=== PATIENT | male | born 1955 | race Two or more races ===

== ENCOUNTER 2019-08-02 16:16 | Inpatient (IN) | payer MEDICARE ==
[2019-08-02] VITALS (19 sets, daily range): BP systolic 89–117; BP diastolic 48–81
[~2019-08-02] VITALS: Ht 180.3 cm; Wt 90.9 kg
[2019-08-02] MEDS ORDERED: VANCOMYCIN 1GM/250ML 250 ML IV ONE (17:00)
[2019-08-02] MEDS ORDERED: SODIUM CHLORIDE 0.9% 1,000 ML IV ONE ×2 (17:00)
[2019-08-02] MEDS ORDERED: PIPERACILLIN-TAZOB 3.375GM 100 ML IV ONE (17:00)
[2019-08-02] MEDS ORDERED: IPRATROPIUM BROM 0.5 MG/2.5ML INH SOL NEB ONE (17:15)
[2019-08-02] MEDS ORDERED: ALBUTEROL SULF 2.5 MG/0.5ML(0.5%) NEB SOLN NEB ONE (17:15)
[2019-08-02 17:42] LABS: Albumin 3.1 g/dL (3.4-5.0); Anion Gap 16 (5-15); Blood Urea Nitrogen 45 mg/dL (7-18); Calcium 8.7 mg/dL (8.5-10.1); Carbon Dioxide 19 mmol/L (21-32); Chloride 103 mmol/L (98-107); Glucose 172 mg/dL (74-106); Potassium 3.7 mmol/L (3.5-5.1); Sodium 138 mmol/L (136-145)
[2019-08-02 17:47] LABS: Alanine Aminotransferase 22 U/L (16-61); Alkaline Phosphatase 69 U/L (45-117); Aspartate Aminotransferase 14 U/L (15-37); BUN/Creatinine Ratio 12.1; GFR African American 21 mL/min; GFR Non-African American 18 mL/min; Total Protein 7.5 g/dL (6.4-8.2)
[2019-08-02 17:50] LABS: INR 1.38 (0.9-1.15)
[2019-08-02 17:54] LABS: Basophils # (auto) 0 uL; Basophils % (auto) 0.3 % (0.0-2.0); Eosinophils # (auto) 0 uL; Hematocrit 43.4 % (41.0-53.0); Hemoglobin 15.2 g/dL (13.5-17.5); Lymphocytes # (auto) 0.5 uL; Lymphocytes % (auto) 7.6 % (10.0-50.0); Mean Corpuscular Hemoglobin 32.8 pg (28.0-32.0); Mean Corpuscular Hgb Conc. 35.1 g/dL (32.0-36.0); Mean Corpuscular Volume 93.5 fL (80.0-100.0); Monocytes # (auto) 0.2 uL; Monocytes % (auto) 2.4 % (0.0-12.0); Neutrophils # (auto) 6.3 uL; Neutrophils % (auto) 89.7 % (37.0-80.0); Nucleated Red Blood Cells % 0.1 %; Platelet Count (auto) 123 10^3/uL (140-450); Red Blood Cells 4.64 10^6/uL (4.5-5.90); Red Cell Distribution Width 13.7 % (11.8-14.3); White Blood Cell 7.1 10^3/uL (4.4-10.8)
[2019-08-02] MEDS ORDERED: SODIUM CHLORIDE 0.9% 2,700 ML IV ONE (18:00)
[2019-08-02] MEDS ORDERED: MIDAZOLAM DRIP 50 mg/50mL 50 ML IV ONE (18:07)
[2019-08-02] MEDS ORDERED: ETOMIDATE (2MG/ML) 20ML VIAL IV ONE ×2 (18:07→18:45)
[2019-08-02] MEDS ORDERED: SUCCINYLCHOLINE CHLORIDE 20 MG/ML 10ML VIAL IV ONE ×2 (18:07→18:45)
[2019-08-02] MEDS ORDERED: NOREPINEPHRINE 8 MG/250ML KIT 250 ML IV ONE (18:10)
[2019-08-02] MEDS: NOREPINEPHRINE 8 MG/250ML KIT 250 ML IV SCH (18:15)
[2019-08-02 18:18] LABS: Lactic Acid w/Reflex 4.4 mmol/L (0.4-2.0)
[2019-08-02] MEDS: MIDAZOLAM DRIP 50 mg/50mL 50 ML IV SCH (18:18)
--- NOTE | 2019-08-02 18:19 | NUR ---
Respiratory note: ET TUBE MOVED FROM 22 CM AT THE LIP TO 20 CM AT THE LIP AFTER REVIEW OF CHEST XRAY.
[2019-08-02] MEDS ORDERED: fentaNYL Drip 2500mCg/250mlNS 250 ML IV ONE (18:33)
[2019-08-02] MEDS: fentaNYL Drip 2500mCg/250mlNS 250 ML IV SCH (18:44)
[2019-08-02] MEDS ORDERED: DEXTROSE (50%) 50ML SYRG IV PRN (18:45)
[2019-08-02] MEDS ORDERED: NITROGLYCERIN 0.4 MG SL TAB SL PRN (18:45)
[2019-08-02] MEDS ORDERED: ONDANSETRON HCL 4 MG/2 ML VIAL IV PRN (18:45)
[2019-08-02] MEDS ORDERED: MORPHINE SULF INJ 2 MG/ML SYRINGE 1ML IV PRN (18:45)
[2019-08-02] MEDS ORDERED: Glucerna 1.2 Cal 1Liter BOTTLE GT SCH (18:45)
[2019-08-02] MEDS: SODIUM CHLORIDE 0.9% 1,000 ML IV SCH (19:20)
--- NOTE | 2019-08-02 19:30 | NUR ---
REPORT RECEIVED, ASSUMED CARE.
[2019-08-02] MEDS: AZITHROMYCIN 500MG/ 250ML 250 ML IV SCH (20:37)
[2019-08-02] MEDS ORDERED: ALBUMIN 5% 250 ML IV ONE (21:30)
--- NOTE | 2019-08-02 21:35 | NUR ---
Admit to ICU from ER on GONSALO Yuen Admitted to ICU via gurney on operations mgr, intubated and being bagged by Respiratory Therapist. Patient transfered to bed, connected to mechanical ventilator by therapist, MARYAM at bedside. Patient connected to ICU monitoring, weighed by bedscale, oriented to Ginger Ludwig, primary RN, unit, ventilator and sedation. NOTE: PT TO UNIT ON LEVOPHED GTT 25 MCG/MIN, FENTANYL 150 MCG/HR, AND VERSED 15 MG/HR. INCREASED WORK OF BREATHING OBSERVED. INCREASED FENTANYL GTT. SEE IV SPREADSHEET. SINUS TACH ON APPETIZER PACKER. PT WITH NGT TO L. NARE CLAMPED. PLACEMENT VERIFIED. R IJ TLC IN PLACE ALL PORTS PATENT. L. EJ S/L B&P. JJ TO GRAVITY DRAINING CLOUDY LIGHT EDWARD URINE. BED IN LOWEST LOCKED POSITION. HOB ELEVATED. SIDE RAILS UP X 2. NO INDICATION OF PAIN OBSERVED. PT IN FULL VIEW OF RN STATION. WILL CONTINUE TO MONITOR.
--- NOTE | 2019-08-02 21:36 | NUR ---
REPORT GIVEN TO TARSHA PT TRANSFERED TO ICU 9
--- NOTE | 2019-08-02 21:36 | NUR ---
NOTIFIED HOSPITALIST OF PT CURRENT BP ORDERS OBTAINED.
--- NOTE | 2019-08-02 22:00 | NUR ---
FAMILY VISIT PT DAUGHTER TO BEDSIDE FOR VISIT. PT CONDITION AND PLAN OF CARE DISCUSSED. ALL QUESTIONS AND CONCERNS ADDRESSED.
--- NOTE | 2019-08-02 22:09 | NUR ---
CONSULT FOR CALLED INTO EXCHANGE @1721
[2019-08-02] MEDS: FAMOTIDINE (10MG/ML) 2ML VL IV SCH (23:00)
--- NOTE | 2019-08-02 23:02 | NUR ---
ELEVATED HR/ABG ONI PRICE PAGED. UPDATED REGARDING MOST RECENT ABG RESULTS AND CURRENT HR. ORDERS RECEIVED.
[2019-08-02] MEDS ORDERED: SODIUM CHLORIDE 0.9% 500 ML IV ONE (23:15)
[2019-08-02] MEDS ORDERED: SODIUM BICARBONATE 50ML VIAL 100 ML in D5W/SOD CHL 0.45% 1,000 ML IV SCH (23:15)
[2019-08-02] MEDS ORDERED: SODIUM BICARBONATE 8.4% INJ 50ML SYRINGE ONE (23:17)
[2019-08-03] VITALS (105 sets, daily range): BP systolic 73–143; BP diastolic 46–81
[2019-08-03] MEDS: ALBUTEROL SULF 2.5 MG/0.5ML(0.5%) NEB SOLN NEB SCH ×4 (00:02→18:28)
[2019-08-03] MEDS: IPRATROPIUM BROM 0.5 MG/2.5ML INH SOL NEB SCH ×4 (00:02→18:28)
--- NOTE | 2019-08-03 00:28 | NUR ---
ELEVATED HR STUDIO PRODUCER PAGE PAGED STUDIO PRODUCER PRICE REGARDING ELEVATED HR. AWAIT C/B.
[2019-08-03] MEDS: MIDAZOLAM DRIP 50 mg/50mL 50 ML IV SCH ×5 (00:29→21:06)
[2019-08-03] MEDS: NOREPINEPHRINE 8 MG/250ML KIT 250 ML IV SCH ×2 (00:30→16:08)
--- NOTE | 2019-08-03 00:40 | NUR ---
ONI PRICE CALLED BACK UPDATED REGARDING PT HR AT TIMES SVT 150'S. COARSE CRACKLES AUSCULTATED. ORDER RECEIVED TO OBTAIN CHEST XRAY.
[2019-08-03] MEDS: ACCU-CHEK COMFORT CURVE STRIP VI SCH ×4 (00:50→18:10)
[2019-08-03] MEDS: InsuLIN REG 1unit/0.01ml Soln (100units/ml) SC SCH ×4 (00:51→18:13)
[2019-08-03 04:35] LABS: Basophils # (auto) 0 uL; Basophils % (auto) 0.5 % (0.0-2.0); Eosinophils # (auto) 0 uL; Eosinophils % (auto) 0.3 % (0.0-7.0); Hematocrit 41.9 % (41.0-53.0); Hemoglobin 14.5 g/dL (13.5-17.5); Lymphocytes # (auto) 1.3 uL; Lymphocytes % (auto) 13.3 % (10.0-50.0); Mean Corpuscular Hemoglobin 32.5 pg (28.0-32.0); Mean Corpuscular Hgb Conc. 34.5 g/dL (32.0-36.0); Mean Corpuscular Volume 94.1 fL (80.0-100.0); Monocytes # (auto) 0.2 uL; Monocytes % (auto) 1.8 % (0.0-12.0); Neutrophils # (auto) 8.4 uL; Neutrophils % (auto) 84.1 % (37.0-80.0); Nucleated Red Blood Cells % 0.1 %; Platelet Count (auto) 144 10^3/uL (140-450); Red Blood Cells 4.45 10^6/uL (4.5-5.90); Red Cell Distribution Width 13.9 % (11.8-14.3)
[2019-08-03] MEDS: SODIUM CHLORIDE 0.9% 1,000 ML IV SCH (04:45)
[2019-08-03 04:51] LABS: Calcium 6.9 mg/dL (8.5-10.1); Potassium 3.9 mmol/L (3.5-5.1)
[2019-08-03 04:54] LABS: BUN/Creatinine Ratio 16.5
[2019-08-03] MEDS ORDERED: cefTRIAXone 1GM/50ML D5W 50 ML IV SCH (09:00)
[2019-08-03] MEDS ORDERED: ENOXAPARIN SOD 40 MG/0.4 ML SYRINGE SC SCH (10:00)
--- NOTE | 2019-08-03 10:00 | NUR ---
CVP MONITORING HOOKED UP. SEE VS ASSESSMENT SHEET.
--- NOTE | 2019-08-03 10:01 | NUR ---
FAMILY VISIT PT DAUGHTER TO BEDSIDE FOR VISIT. PT CONDITION AND PLAN OF CARE DISCUSSED. ALL QUESTIONS AND CONCERNS ADDRESSED.
[2019-08-03] MEDS: AZITHROMYCIN 500MG/ 250ML 250 ML IV SCH (10:11)
[2019-08-03] MEDS: FAMOTIDINE (10MG/ML) 2ML VL IV SCH (10:11)
[2019-08-03] MEDS: ENOXAPARIN SOD 30 MG/0.3 ML SYRINGE SC SCH (10:11)
[2019-08-03] MEDS ORDERED: SODIUM CHLORIDE 0.9% 1,000 ML IV SCH (10:15)
[2019-08-03] MEDS: VASOPRESSIN 50 UNITS in D5W 5% 247.5 ML IV SCH (10:15)
[2019-08-03] MEDS ORDERED: VANCOMYCIN PER PHARMACY 0 MG IV SCH (10:15)
[2019-08-03] MEDS ORDERED: FUROSEMIDE 20 MG/2 ML VIAL IV ONE (11:00)
--- NOTE | 2019-08-03 11:10 | NUR ---
Respiratory note: PT RR INCREASED TO [address] VALENTIN. ABG TO FOLLOW.RN AWARE OF CHANGES.
[2019-08-03] MEDS ORDERED: VANCOMYCIN 1GM/250ML 250 ML IV ONE (11:30)
--- NOTE | 2019-08-03 12:14 | NUR ---
Nutrition Assessment/consult Notes please see attached link for complete assessment Est. Needs BW 94 [id number] kcal (23-25 kcal/kgBW), 75-94 gms pro (0.8-1.0 gms/kgBW r/t elev RFT). Will continue to monitor pertinent labs and reassess nutrient need prn Addendum: 08/03/19 at [address] Amended: Links added.
--- NOTE | 2019-08-03 12:20 | NUR ---
Respiratory note: UNABLE TO OBTAIN ABG AT THIS TIME STERILE ART LINE PROCEDURE IN PROGRESS.WILL TRY AGAIN AT A LATER TIME.
--- NOTE | 2019-08-03 12:45 | NUR ---
Criss BOWAMN NP PLACED RIGHT FEMORAL ATRIAL LINE WITHOUT ISSUES. FAP HOOKED UP TO MONITOR. SEE ASSESMENT SHEET.
--- NOTE | 2019-08-03 13:22 | NUR ---
VENOUS DOPPLER STUDY BEING DONE. SEE REPORT.
--- NOTE | 2019-08-03 14:09 | NUR ---
WOUND CARE NOTE: Wound care consult received from nursing for low Montana score. Patient is a 64yo male admitted for septic shock. Patient with a history of HTN, NIDDM, HLD, osteoarthritis and COPD. Patient is currently intubated and sedated. Patient with no signs or symptoms of pain. Last Montana score is 11. Patient with no open wounds noted. Skin is intact. RECOMMENDATIONS: Dietary Consult; Turn q2hrs; Nursing to cleanse buttocks/mariah area with mild soap and water, pat dry, apply ZGUARD BID/PRN soiling, may place sacral foam to prevent friction/shear; wound care team to follow while intubated and Montana <18.
[2019-08-03] MEDS ORDERED: SODIUM BICARBONATE 8.4 % INJ 50ML VIAL IV ONE (14:15)
[2019-08-03] MEDS: fentaNYL Drip 2500mCg/250mlNS 250 ML IV SCH (16:07)
[2019-08-03 16:14] LABS: Urine Bacteria NONE SEEN /hpf (None Seen); Urine Blood TRACE /uL (Negative); Urine Mucus FEW (None Seen); Urine WBC 4 /hpf (0 - 3)
[2019-08-03 16:15] LABS: Alcohol, Urine < 3.0 mg/dL (0-5); Amphetamine Screen, Urine POSITIVE (NEGATIVE); Barbiturate Scree,Urine NEGATIVE (NEGATIVE); Benzodiazephine Screen, Urine POSITIVE (NEGATIVE); Cannabinoid Screen, Urine NEGATIVE (NEGATIVE); Cocaine Screen, Urine NEGATIVE (NEGATIVE)
[2019-08-03 16:22] LABS: Opiate Scree,Urine NEGATIVE (NEGATIVE); Phencyclidine Screen, Urine NEGATIVE (NEGATIVE)
[2019-08-03] MEDS: HYDROCORTISONE SOD SUCC 100 MG/2ML INJ VIAL IV SCH (18:10)
[2019-08-03] MEDS: PIPERACILLIN-TAZOB 2.25GM 50 ML IV SCH (18:13)
--- NOTE | 2019-08-03 20:00 | NUR ---
FAMILY VISIT PT DAUGHTER AND SISTER TO UNIT. UPDATED ON PT CONDITION AND PLAN OF CARE. ALL QUESTIONS AND CONCERNS ADDRESSED. PT DAUGHTER WISHES TO CHANGE PASSWORD AND RESTRICT VISITING TO PASSWORD ONLY. BOILER TESTER UPDATED.
--- NOTE | 2019-08-03 20:00 | NUR ---
OPEN ASSUMED CARE OF MALE PT ORALLY INTUBATED. PT SEDATED ON VERSED GTT 15 MG/HR, AND FENTANYL GTT 200 MCG/HR. COUGH AND GAG POSITIVE. PT GRIMACE DURING TURNING AND ORAL CARE, OTHERWISE NON RESPONSIVE. SR ON SELVAGE MACHINE OPERATOR. LEVOPHED GTT INFUSING AT 20 MCG/MIN, AND VASOPRESSIN GTT 0.03 UNIT/MIN. PULSES WEAK/PALPABLE. R. FEMORAL TAYE IN PLACE WITH GOOD WAVEFORM OBSERVED. R. IJ TLC CATH IN PLACE HOOKED UP TO CVP READINGS. CVP 10. GOOD WAVE FORM OBSERVED. ALL PORTS PATENT. L. EJ 18 G IV S/L. B&P. NGT TO L. NARE CLAMPED. PLACEMENT VERIFIED. JJ TO GRAVITY DRAINING LIGHT EDWARD URINE. NO SKIN BREAKDOWN OBSERVED. NO INDICATION OF PAIN OBSERVED. BED IN LOWEST LOCKED POSITION. HOB ELEVATED 35 DEGREES. PT IN FULL VIEW OF RN STATION. WILL CONTINUE TO MONITOR.
[2019-08-03] MEDS: LINEZOLID 600MG/300ML 300 ML IV SCH (21:55)
--- NOTE | 2019-08-03 22:16 | NUR ---
FIO2 DECREASED TO 55%
[2019-08-04] VITALS (104 sets, daily range): BP systolic 94–133; BP diastolic 60–86
[2019-08-04] MEDS: HYDROCORTISONE SOD SUCC 100 MG/2ML INJ VIAL IV SCH ×4 (00:13→21:34)
[2019-08-04] MEDS: PIPERACILLIN-TAZOB 2.25GM 50 ML IV SCH ×5 (00:15→23:41)
[2019-08-04] MEDS: ACCU-CHEK COMFORT CURVE STRIP VI SCH ×5 (00:20→23:56)
[2019-08-04] MEDS: InsuLIN REG 1unit/0.01ml Soln (100units/ml) SC SCH ×5 (00:25→23:56)
[2019-08-04] MEDS: ALBUTEROL SULF 2.5 MG/0.5ML(0.5%) NEB SOLN NEB SCH ×4 (00:57→18:14)
[2019-08-04] MEDS: IPRATROPIUM BROM 0.5 MG/2.5ML INH SOL NEB SCH ×4 (00:57→18:14)
[2019-08-04 04:27] LABS: Basophils # (auto) 0 uL; Basophils % (auto) 0.2 % (0.0-2.0); Eosinophils # (auto) 0 uL; Hematocrit 38.5 % (41.0-53.0); Hemoglobin 13.3 g/dL (13.5-17.5); Lymphocytes # (auto) 0.5 uL; Lymphocytes % (auto) 3.3 % (10.0-50.0); Mean Corpuscular Hemoglobin 32.4 pg (28.0-32.0); Mean Corpuscular Hgb Conc. 34.5 g/dL (32.0-36.0); Monocytes # (auto) 0.3 uL; Monocytes % (auto) 2.4 % (0.0-12.0); Neutrophils # (auto) 13.5 uL; Neutrophils % (auto) 94.1 % (37.0-80.0); Platelet Count (auto) 118 10^3/uL (140-450); Red Blood Cells 4.09 10^6/uL (4.5-5.90); White Blood Cell 14.3 10^3/uL (4.4-10.8)
[2019-08-04 04:51] LABS: Albumin 2.1 g/dL (3.4-5.0); BUN/Creatinine Ratio 19.3; Calcium 7.3 mg/dL (8.5-10.1); Potassium 4.1 mmol/L (3.5-5.1)
[2019-08-04 04:53] LABS: Bilirubin, Total 0.4 mg/dL (0.2-1.0); Total Protein 6.5 g/dL (6.4-8.2)
[2019-08-04] MEDS: fentaNYL Drip 2500mCg/250mlNS 250 ML IV SCH ×2 (05:02→17:12)
--- NOTE | 2019-08-04 07:00 | NUR ---
Report received from AMY Miles.
--- NOTE | 2019-08-04 08:57 | NUR ---
Dr. Ivory at bedside: Obtain consent for possible bronchoalveolar Lavage, with possible lavage and possible washings.
[2019-08-04] MEDS: VASOPRESSIN 50 UNITS in D5W 5% 247.5 ML IV SCH (09:23)
[2019-08-04] MEDS: NOREPINEPHRINE 8 MG/250ML KIT 250 ML IV SCH (09:24)
[2019-08-04] MEDS: PANTOPRAZOLE 40 MG/10 ML VIAL INJ IV SCH (09:43)
[2019-08-04] MEDS: FAMOTIDINE (10MG/ML) 2ML VL IV SCH (09:43)
[2019-08-04] MEDS: LINEZOLID 600MG/300ML 300 ML IV SCH ×2 (09:44→21:34)
[2019-08-04] MEDS: ENOXAPARIN SOD 30 MG/0.3 ML SYRINGE SC SCH (09:44)
--- NOTE | 2019-08-04 10:40 | NUR ---
Dr. Clarke spoke to family at bedside: Kidney function stable, continue to monitor closely.
[2019-08-04] MEDS: MIDAZOLAM DRIP 50 mg/50mL 50 ML IV SCH ×3 (10:54→20:42)
--- NOTE | 2019-08-04 11:12 | NUR ---
Request for medical records faxed to [facility]. Note: copy placed in chart.
[2019-08-04] MEDS ORDERED: GLIP-110 PO (11:29)
[2019-08-04] MEDS ORDERED: MELO1TAB56 PO (11:29)
[2019-08-04] MEDS ORDERED: PRAV20TA3 GT (11:29)
[2019-08-04] MEDS ORDERED: DICL1GEL35 TD (11:29)
[2019-08-04] MEDS ORDERED: PANT40TA2 PO (11:29)
[2019-08-04] MEDS ORDERED: LISI10TA6 PO (11:29)
[2019-08-04] MEDS ORDERED: GABA300C10 PO (11:29)
--- NOTE | 2019-08-04 14:43 | NUR ---
Dr. De Los Santos at bedside: Titrate off vasopressin before levophed, start Glucerna with goal of 30ml/hr.
--- NOTE | 2019-08-04 15:00 | NUR ---
Tube feeding started at 10ml/hr. Will monitor residuals.
[2019-08-04] MEDS ORDERED: Glucerna 1.2 Cal 1Liter BOTTLE GT SCH (15:45)
--- NOTE | 2019-08-04 16:51 | NUR ---
Increased tube feeding to 20ml/hr, residuals 5cc. Patient tolerating tube feeding. Continue to monitor.
--- NOTE | 2019-08-04 18:58 | NUR ---
Endorsed care to AMY Berry.
--- NOTE | 2019-08-04 20:33 | NUR ---
ETT PLACEMENT READING 7.5 CM ABOVE DELVIS. ETT ADVANCED AND RESECURED AT 23 UPPER LIP FROM 20. CUFF PRESSURE MEASURED AT 30.
[2019-08-05] VITALS (105 sets, daily range): BP systolic 66–133; BP diastolic 52–82
[2019-08-05] MEDS: IPRATROPIUM BROM 0.5 MG/2.5ML INH SOL NEB SCH ×4 (00:15→18:37)
[2019-08-05] MEDS: ALBUTEROL SULF 2.5 MG/0.5ML(0.5%) NEB SOLN NEB SCH ×4 (00:16→18:38)
[2019-08-05] MEDS: MIDAZOLAM DRIP 50 mg/50mL 50 ML IV SCH ×2 (04:04→11:07)
[2019-08-05 04:14] LABS: Basophils # (auto) 0 uL; Basophils % (auto) 0.3 % (0.0-2.0); Eosinophils # (auto) 0 uL; Eosinophils % (auto) 0.1 % (0.0-7.0); Hematocrit 35.1 % (41.0-53.0); Hemoglobin 12.2 g/dL (13.5-17.5); Lymphocytes # (auto) 0.8 uL; Lymphocytes % (auto) 5.7 % (10.0-50.0); Mean Corpuscular Hemoglobin 32.1 pg (28.0-32.0); Mean Corpuscular Hgb Conc. 34.6 g/dL (32.0-36.0); Mean Corpuscular Volume 92.7 fL (80.0-100.0); Monocytes # (auto) 0.7 uL; Monocytes % (auto) 4.8 % (0.0-12.0); Neutrophils # (auto) 12.2 uL; Neutrophils % (auto) 89.1 % (37.0-80.0); Platelet Count (auto) 126 10^3/uL (140-450); Red Blood Cells 3.78 10^6/uL (4.5-5.90); White Blood Cell 13.7 10^3/uL (4.4-10.8)
[2019-08-05 04:31] LABS: BUN/Creatinine Ratio 28.6; Calcium 8.1 mg/dL (8.5-10.1); Potassium 3.4 mmol/L (3.5-5.1)
--- NOTE | 2019-08-05 05:00 | NUR ---
A Line Dressing Changes A line dressing change done with a sterile technique. Cleansed with chloraprep scrub/betadine, applied bio-patch. Occlusive dressing applied.
--- NOTE | 2019-08-05 05:30 | NUR ---
Patient bathe/linen change Patient given complete bath. Skin integrity assessed for any changes. Linens changed. Patient repositioned for comfort.
[2019-08-05] MEDS: HYDROCORTISONE SOD SUCC 100 MG/2ML INJ VIAL IV SCH ×2 (06:06→13:33)
[2019-08-05] MEDS: PIPERACILLIN-TAZOB 2.25GM 50 ML IV SCH ×3 (06:06→17:40)
[2019-08-05] MEDS: fentaNYL Drip 2500mCg/250mlNS 250 ML IV SCH (06:07)
[2019-08-05] MEDS: ACCU-CHEK COMFORT CURVE STRIP VI SCH ×3 (06:08→17:40)
[2019-08-05] MEDS: InsuLIN REG 1unit/0.01ml Soln (100units/ml) SC SCH ×3 (06:08→17:44)
--- NOTE | 2019-08-05 07:08 | NUR ---
Report received from AMY Berry.
[2019-08-05] MEDS: NOREPINEPHRINE 8 MG/250ML KIT 250 ML IV SCH (09:02)
--- NOTE | 2019-08-05 09:21 | NUR ---
CHG bath given and groomed facial hair. Signed: 08/05/19 at 0922 by Cristina Paz RN
[2019-08-05] MEDS: PANTOPRAZOLE 40 MG/10 ML VIAL INJ IV SCH (09:41)
[2019-08-05] MEDS: FAMOTIDINE (10MG/ML) 2ML VL IV SCH (09:41)
[2019-08-05] MEDS: ENOXAPARIN SOD 30 MG/0.3 ML SYRINGE SC SCH (09:42)
[2019-08-05] MEDS: LINEZOLID 600MG/300ML 300 ML IV SCH ×2 (09:42→21:54)
[2019-08-05] MEDS: VASOPRESSIN 50 UNITS in D5W 5% 247.5 ML IV SCH (10:15)
[2019-08-05] MEDS: POTASSIUM CHL 20MEQ/100ML 100 ML IV SCH ×2 (11:08→12:17)
--- NOTE | 2019-08-05 11:42 | NUR ---
Nutrition Follow-up Notes Wt.: 96.6 kg Pt's intubated, sedated, no immediate family member at bedside when rounded earlier. Pt's currently NPO with EN support of Glucerna 1.2 Chandan @ 30 ml/hr providing 864 kcal, 43 gms pro and 580 ml free water. Pt with inadequate EN support d/t low initiation rate delivery of concentrated formula aeb current EN infusion meets 36-39% of est caloric needs and 45-57% of est protein needs. Noted pt's for active Wound consult. Est. Needs BW 94 [id number] kcal (23-25 kcal/kgBW), 75-94 gms pro (0.8-1.0 gms/kgBW r/t elev RFT). Will continue to monitor pertinent labs and reassess nutrient need prn Labs: BUN 50 H, CREAT 1.75 H, GLU 266 H, CA 8.1 L Skin: Montana scale 11, high risk, skin intact per RN doc GI: Pt has no BM reported per treating and pumping supervisor. PES: Impaired swallowing r.t current medical condition aeb pt`s intubated sedated with order of NPO Altered nutrition related lab values r/t current/chronic medical condition aeb hyperglycemia, elev RFT mild hypoalb Will continue to monitor NPO status, EN tolerance, skin status, pertinent labs and weight trend. F/u in 2 to 3 days. Rec.: 1.) Advance EN support with Glucerna @ 75 ml/hr. 2) refer to CDE on DC. 3) advance diet as medically feasible. 4) continue current plan of care
[2019-08-05 11:56] LABS: INR 1.04 (0.9-1.15)
[2019-08-05] MEDS ORDERED: ACETYLCYSTEINE 10 %(100MG/ML) SOL 4ML IN ONE (12:00)
--- NOTE | 2019-08-05 12:00 | NUR ---
Dr. Clarke at bedside: Potassium ordered to replace low potassium,.
--- NOTE | 2019-08-05 12:29 | NUR ---
A-line pressure not correlating and not working when aspirating blood.
[2019-08-05] MEDS ORDERED: MIDAZOLAM HCL 5 MG/ML-1ML VIAL ONE (13:15)
[2019-08-05] MEDS ORDERED: LIDOCAINE HCL 2% TOP JELLY 5ML TOP ONE (13:15)
[2019-08-05] MEDS ORDERED: SODIUM CHLORIDE LOCK 10 ML ONE (13:15)
[2019-08-05] MEDS ORDERED: LIDOCAINE 2%HCL (LOCAL ANESTH.) INJ 20ML MDV ONE (13:15)
[2019-08-05] MEDS ORDERED: EPINEPHrine HCL 1 MG/1 ML AMP ONE (13:15)
[2019-08-05] MEDS ORDERED: fentaNYL CITRATE 100 MCG/2 ML VL ONE (13:16)
--- NOTE | 2019-08-05 14:33 | NUR ---
Dr. De Los Santos at bedside: Okay to discontinue A-line, steroid dicontinued, ask Dr. Ivory regarding peep ... okay to decrease.
--- NOTE | 2019-08-05 15:00 | NUR ---
A-line discontinued, pressure applied to site, covered with 4x4 and taped. Tolerated well.
--- NOTE | 2019-08-05 15:40 | NUR ---
DR VALENTIN at bedside: Bronch procedure, patient tolerated well. See report. Addendum: 08/05/19 at 1947 by Cristina Paz RN Peep okay at 8, helps patients lungs open up.
[2019-08-05] MEDS: ACETAMINOPHEN 500 MG TAB PO PRN (17:45)
[2019-08-05] MEDS ORDERED: FUROSEMIDE 40 MG/4 ML VIAL IV ONE (19:00)
--- NOTE | 2019-08-05 19:42 | NUR ---
Endorsed care to AMY Berry.
--- NOTE | 2019-08-05 20:00 | NUR ---
Patient bathe/linen change Patient had a bowel movement. Patient given complete bath. Skin integrity assessed for any changes. Linens changed. Patient repositioned for comfort.
--- NOTE | 2019-08-05 21:00 | NUR ---
SEDATION VACATION HELD PATIENT IS RESTLESS SO SEDATION INCREASED. Addendum: 08/06/19 at 6074 by Jina Pollock RN Amended: Links added.
--- NOTE | 2019-08-05 21:00 | NUR ---
Sedation increased Patient is restless, trying to pull put ett, not following commands. sedation increased to keep patient calm.
[2019-08-06] VITALS (98 sets, daily range): BP systolic 83–180; BP diastolic 40–107
[2019-08-06] MEDS: IPRATROPIUM BROM 0.5 MG/2.5ML INH SOL NEB SCH ×4 (00:05→18:27)
[2019-08-06] MEDS: ALBUTEROL SULF 2.5 MG/0.5ML(0.5%) NEB SOLN NEB SCH ×4 (00:06→18:27)
[2019-08-06] MEDS: PIPERACILLIN-TAZOB 2.25GM 50 ML IV SCH ×5 (00:15→23:44)
[2019-08-06] MEDS: fentaNYL Drip 2500mCg/250mlNS 250 ML IV SCH (00:16)
[2019-08-06] MEDS: MIDAZOLAM DRIP 50 mg/50mL 50 ML IV SCH ×2 (00:19→10:40)
[2019-08-06] MEDS: ACCU-CHEK COMFORT CURVE STRIP VI SCH ×5 (00:25→23:38)
[2019-08-06] MEDS: InsuLIN REG 1unit/0.01ml Soln (100units/ml) SC SCH ×5 (00:42→23:39)
[2019-08-06] MEDS: DexMEDEtomidine 400 MCG in D5W 5% 96 ML IV SCH ×2 (04:16→15:09)
[2019-08-06 06:57] LABS: Hematocrit 33.9 % (41.0-53.0); Hemoglobin 11.8 g/dL (13.5-17.5); Mean Corpuscular Hemoglobin 32.3 pg (28.0-32.0); Mean Corpuscular Hgb Conc. 34.7 g/dL (32.0-36.0); Platelet Count (auto) 115 10^3/uL (140-450); Red Blood Cells 3.64 10^6/uL (4.5-5.90); White Blood Cell 10.3 10^3/uL (4.4-10.8)
[2019-08-06 07:09] LABS: Basophils % (manual) 0 (0.0-2.0); Blast Cells 0; Metamyelocytes % 0; Myelocytes % 0; Promyelocytes % 0; Reactive Lymphocytes 0
[2019-08-06 07:12] LABS: BUN/Creatinine Ratio 31.7; Calcium 8.5 mg/dL (8.5-10.1); Potassium 3.1 mmol/L (3.5-5.1)
--- NOTE | 2019-08-06 07:15 | NUR ---
Received report from AMY Berry.
[2019-08-06 07:18] LABS: Lactic Acid w/Reflex 2.1 mmol/L (0.4-2.0)
[2019-08-06 07:41] LABS: Band Neutrophils % (manual) 4; Eosinophils % (manual) 1 (0-7); Lymphocytes % (manual) 12 (10.0-50.0); Monocytes % (manual) 7 (0-12)
--- NOTE | 2019-08-06 09:40 | NUR ---
UNSUCCESSFUL AWAKENING TRIAL FOR CPAP- PATIENT EXTREMELY AGITATED, DAUGHTER AND SISTER AT BEDSIDE. WE WERE UNABLE TO CALM PATIENT DOWN KEPT DISCONNECTING ETT (WITH MITTENS ON) AND PRECEDEX, AND TRYING TO GET OUT OF BED. DR. VALENTIN AT BEDSIDE, HE SAID TO TRY TO CPAP TODAY WITH LOW DOSE SEDATION (DIPRIVAN/FENTANYL).
[2019-08-06] MEDS ORDERED: POTASSIUM EFFERVESENT TAB 25 MEQ GT ONE (09:45)
[2019-08-06] MEDS ORDERED: POTASSIUM CHL 20MEQ/100ML 100 ML IV ONE (09:45)
--- NOTE | 2019-08-06 10:00 | NUR ---
Patient had bowel movement, pericare/marie care given, linen and gown changed.
[2019-08-06] MEDS: VASOPRESSIN 50 UNITS in D5W 5% 247.5 ML IV SCH (10:15)
[2019-08-06] MEDS: LINEZOLID 600MG/300ML 300 ML IV SCH ×2 (10:37→21:40)
[2019-08-06] MEDS: PANTOPRAZOLE 40 MG/10 ML VIAL INJ IV SCH (10:37)
[2019-08-06] MEDS: FAMOTIDINE (10MG/ML) 2ML VL IV SCH (10:37)
[2019-08-06] MEDS: ENOXAPARIN SOD 30 MG/0.3 ML SYRINGE SC SCH (10:38)
[2019-08-06] MEDS ORDERED: PROPOFOL 100 ML IV ONE (11:12)
[2019-08-06] MEDS: PROPOFOL 100 ML IV SCH (11:45)
--- NOTE | 2019-08-06 14:15 | NUR ---
Dr. De Los Santos at bedside- AM orders, and to give lasix to diurese patient.
--- NOTE | 2019-08-06 14:20 | NUR ---
Patient placed on CPAP trial.
[2019-08-06] MEDS ORDERED: FUROSEMIDE 20 MG/2 ML VIAL ONE (14:22)
[2019-08-06] MEDS ORDERED: FUROSEMIDE 20 MG/2 ML VIAL IV ONE (14:30)
--- NOTE | 2019-08-06 16:03 | NUR ---
Respiratory note: DR VALENTIN CALLED AND GIVEN WEANING PARAMETERS, WELL ABG RESULTS ON CPAP. ORDERS WERE GIVEN TO EXTUBATE PT., BIPAP PRN 21/03 TITRATE FIO2 TO MAINTAIN SPO2 >92%, COOL AEROSOL VIA MASK, AND RACEMIC EPINEPHRINE X2 IF NEEDED. RN MADE AWARE.
[2019-08-06] MEDS ORDERED: EPINEPHrine HCL 0.5 ML NEB NEB ONE ×2 (16:30)
--- NOTE | 2019-08-06 16:30 | NUR ---
Dr. Ivory gave orders to extubate after receiving ABG results and weaning parameters.
--- NOTE | 2019-08-06 16:35 | NUR ---
Patient extubated at 1635- still lethargic arousing patient on cool aerosol mask at 45%, patient sats in low to mid 90's -continue to monitor at bedside.
--- NOTE | 2019-08-06 16:35 | NUR ---
Respiratory note: PT EXTUBATED AND PLACED ON COOL AEROSOL MASK 45% FIO2. BS CLEAR/DIMINISHED, SPO2 94%, HR 112, RR 28. WILL ENDORSE PT STATUS TO PUTTIER.
--- NOTE | 2019-08-06 17:05 | NUR ---
After getting extubated patient got really combated - hitting, punching, and cussing at the nurses. Daughter Lida notified, notified and restraints obtained. Continue to monitor for safety.
[2019-08-06] MEDS ORDERED: HALOPERIDOL LACTATE 5 MG/ML INJ VIAL ONE (18:25)
[2019-08-06] MEDS ORDERED: HALOPERIDOL LACTATE 5 MG/ML INJ VIAL IV ONE (18:30)
[2019-08-06] MEDS ORDERED: LORazepam 2MG/ML-1ML VIAL IV ONE (18:30)
--- NOTE | 2019-08-06 18:35 | NUR ---
Dr. Sharpe notified patient very combative- haldol order and ativan order obtained.
--- NOTE | 2019-08-06 18:50 | NUR ---
Patient had three loose stools this [id number] given and chucks changed.
--- NOTE | 2019-08-06 19:02 | NUR ---
Endorsed care to AMY Ivy.
--- NOTE | 2019-08-06 19:30 | NUR ---
OPENING ASSUMED CARE OF PATIENT ALERT AND ORIENTED X2. PUPILS EQUAL AND REACTIVE. MOEVS ALL EXTREMIEITES. COMBATIVE, AGITATED, CONFUSED. ATTEMPTING TO KICK NURSE DURING ASSESSMENT, SCREAMING "FUCK YOU". SOFT RESTRAINTS IN PLACE TO BILATERAL WRISTS. SAFETY PRECAUTIONS IN PLACE. SKIN INTEGRITY CHECKED PER PROTOCOL. SKIN INTACT. RESPIRATIONS EVEN AND LABORED, TRYING TO PULL AT MASK AND KICK NUURSE.
--- NOTE | 2019-08-06 19:30 | NUR ---
OPENING CONTINUED MASK ON 02 SAT [address]%. [address] ON LEGAL MANAGER. RIGHT IJ 3 LUMEN SALINE LOCKED AT THIS TIME. JJ CATHETER PATENT AND DRAINING YELLOW URINE WITH SEDIMENT TO GRAVITY. BED IN LOWEST LOCKED POSITION. NO PAIN INDICATED. SAFETY MEASURES IN PLACE. WILL CONTINUE TO MONITOR. SMEAR BROWN BM AT THIS TIME.
--- NOTE | 2019-08-06 20:34 | NUR ---
FAMILY CALL FROM DAUGHTER LISHA, UPDATED ON PATIENTS STATUS. ALL QUESTIONS AND CONCERNS ADDRESSED AT THIS TIME. DAUGHTER VERBALIZED UNDERSTANDING.
--- NOTE | 2019-08-06 21:40 | NUR ---
ATIVAN 0.5 MG GIVEN AT THIS TIME PER PROTOCOL. VSS. WILL CONTINUE TO MONITOR
--- NOTE | 2019-08-06 22:40 | NUR ---
PT AGITATION PT CONTINUES TO BE COMBATIVE KICKING AT NURSE. SCREAMING "FUCK YOU, MOTHER FUCKER" UPON CARE. ATTEMPTING TO GET OUT OF BED AND KICK AT STAFF. ATIVAN .5 MG AT 2140 WITH NO OBSERVED EFFECT. VERBALLY TALKED PT DOWN. PT CALM FOR TIME BEING. VSS. REORIENTED TO TIME AND PLACE.NURSE SITTING IN PATIENTS ROOM FOR SAFETY MEASURES. BED IN LOWEST LOCKED POSITION. NO PAIN NOTED. WILL CONTINUE TO MONITOR.
[2019-08-07] VITALS (29 sets, daily range): BP systolic 118–168; BP diastolic 68–111
--- NOTE | 2019-08-07 | NUR ---
LINEN CHANGE AND BED BATH DONE AT THIS TIME BM AT THIS TIME LINENS CHANGED AND PATIENT BATHED AND CLEANED UP. SKIN ASSESSED FOR ANY CHANGES. VSS. PT COMBATIVE, CONFUSED, AGITATED. VSS. WILL CONTINUE TO MONITOR.
[2019-08-07] MEDS: IPRATROPIUM BROM 0.5 MG/2.5ML INH SOL NEB SCH ×4 (00:33→18:11)
[2019-08-07] MEDS: ALBUTEROL SULF 2.5 MG/0.5ML(0.5%) NEB SOLN NEB SCH ×4 (00:34→18:11)
[2019-08-07] MEDS ORDERED: LORazepam 2MG/ML-1ML VIAL ONE (03:22)
[2019-08-07] MEDS ORDERED: LORazepam 2MG/ML-1ML VIAL IV ONE (03:30)
[2019-08-07 04:29] LABS: Hematocrit 35.2 % (41.0-53.0); Hemoglobin 12.1 g/dL (13.5-17.5); Mean Corpuscular Hemoglobin 31.8 pg (28.0-32.0); Mean Corpuscular Hgb Conc. 34.5 g/dL (32.0-36.0); Mean Corpuscular Volume 92.2 fL (80.0-100.0); Platelet Count (auto) 143 10^3/uL (140-450); Red Blood Cells 3.82 10^6/uL (4.5-5.90); Red Cell Distribution Width 13.7 % (11.8-14.3); White Blood Cell 11.7 10^3/uL (4.4-10.8)
[2019-08-07 04:42] LABS: Basophils % (manual) 0 (0.0-2.0); Blast Cells 0; Eosinophils % (manual) 0 (0-7); Metamyelocytes % 0; Monocytes % (manual) 0 (0-12); Myelocytes % 0; Promyelocytes % 0; Reactive Lymphocytes 0
--- NOTE | 2019-08-07 04:49 | NUR ---
BM/ LINEN CHANGE AT THIS TIME. PT CLEANED AND LINENS CHANGED. COMBATIVE, CONFUSED, AGITATED. VSS. SAFETY MEASURES IN PLACE. WILL CONTINUE TO MONITOR.
[2019-08-07] MEDS: PIPERACILLIN-TAZOB 2.25GM 50 ML IV SCH (05:48)
[2019-08-07] MEDS: ACCU-CHEK COMFORT CURVE STRIP VI SCH ×3 (05:49→18:15)
[2019-08-07] MEDS: InsuLIN REG 1unit/0.01ml Soln (100units/ml) SC SCH ×3 (05:49→18:15)
[2019-08-07 06:23] LABS: Band Neutrophils % (manual) 9; Lymphocytes % (manual) 9 (10.0-50.0)
--- NOTE | 2019-08-07 07:20 | NUR ---
OPENING NOTE SHIFT REPORT RECEIVED AND ASSUMED CARE OF PT FROM AURY REYES
--- NOTE | 2019-08-07 08:00 | NUR ---
BM/LINEN CHANGE PT HAD MODERATE AMOUNT SOFT BM. PT CLEANSED WITH SOAP AND WATER AND LINENS CHANGED
--- NOTE | 2019-08-07 09:30 | NUR ---
BM/LINEN CHANGE PT HAD MODERATE AMOUNT SOFT BM. PT CLEANSED WITH SOAP AND WATER AND LINENS CHANGED
[2019-08-07] MEDS: FAMOTIDINE (10MG/ML) 2ML VL IV SCH (10:00)
[2019-08-07] MEDS: ENOXAPARIN SOD 30 MG/0.3 ML SYRINGE SC SCH (10:07)
[2019-08-07] MEDS: PANTOPRAZOLE 40 MG/10 ML VIAL INJ IV SCH (10:07)
[2019-08-07] MEDS: LINEZOLID 600MG/300ML 300 ML IV SCH (10:07)
--- NOTE | 2019-08-07 11:00 | NUR ---
BM/LINEN CHANGE PT HAD MODERATE AMOUNT SOFT BM. PT CLEANSED WITH SOAP AND WATER AND LINENS CHANGED
--- NOTE | 2019-08-07 11:02 | NUR ---
PT HAS REMOVED CENTRAL LINE. NO EXCESSIVE BLEEDING NOTED. WILL CONTINUE TO MONITOR
[2019-08-07] MEDS: PROPOFOL 100 ML IV SCH (11:05)
[2019-08-07] MEDS: DexMEDEtomidine 400 MCG in D5W 5% 96 ML IV SCH (11:49)
--- NOTE | 2019-08-07 12:00 | NUR ---
PT IS BEING CALM AND COOPERATIVE AT THIS TIME. RESTRAINTS REMOVED. WILL CONTINUE TO MONITOR
--- NOTE | 2019-08-07 12:00 | NUR ---
DAUGHTER AT BEDSIDE SHE IS ABLE TO CALM PT DOWN AND PT IS BEING COOPERATIVE AT THIS TIME. RESTRAINTS REMOVED. WILL CONTINUE TO MONITOR
--- NOTE | 2019-08-07 12:28 | NUR ---
Nutrition Follow-up Notes Wt.: 94.7 kg Pt's successfully extubated sleeping with no family by beside. per nursing records pt showing compliance. pt is currently NPO was on EN support with Glucerna 1.2 Chandan @ 30 ml/hr providing 864 kcal, 43 gms pro and 580 ml free water. Est. Needs BW 94 [id number] kcal (23-25 kcal/kgBW), 75-94 gms pro (0.8-1.0 gms/kgBW r/t elev RFT). Will continue to monitor pertinent labs and reassess nutrient need prn Labs: GLU 191 H, BUN 39 H Skin: Montana scale 11, high risk, skin intact per RN doc GI: Pt had 2 BM today per loan documentation specialist. PES: Impaired swallowing r.t current medical condition aeb pt`s intubated sedated with order of NPO Altered nutrition related lab values r/t current/chronic medical condition aeb hyperglycemia, elev RFT mild hypoalb Will continue to monitor NPO status, skin status, pertinent labs and weight trend. F/u in 2 to 3 days. Rec.: 1.) refer to CDE on DC. 2) advance diet as medically feasible. 3) continue current plan of care
[2019-08-07] MEDS ORDERED: FUROSEMIDE 20 MG/2 ML VIAL IV ONE (12:45)
[2019-08-07] MEDS ORDERED: POTASSIUM CHL 20 Meq TABLET PO ONE (12:45)
--- NOTE | 2019-08-07 13:00 | NUR ---
BM/LINEN CHANGE PT HAD MODERATE AMOUNT SOFT BM. PT CLEANSED WITH SOAP AND WATER AND LINENS CHANGED
[2019-08-07] MEDS: cefTRIAXone 1GM/50ML D5W 50 ML IV SCH (13:39)
--- NOTE | 2019-08-07 16:30 | NUR ---
BM/LINEN CHANGE PT HAD MODERATE AMOUNT SOFT BM. PT CLEANSED WITH SOAP AND WATER AND LINENS CHANGED
--- NOTE | 2019-08-07 17:30 | NUR ---
BM/LINEN CHANGE PT HAD MODERATE AMOUNT SOFT BM. PT CLEANSED WITH SOAP AND WATER AND LINENS CHANGED
--- NOTE | 2019-08-07 18:00 | NUR ---
FAMILY AT BEDSIDEFAMILY IS ASSISTING IN FEEDING PT'S DINNER. PT IS CALM AND COOPERATIVE. WILL CONTINUE TO MONITOR
--- NOTE | 2019-08-07 19:10 | NUR ---
CLOSING NOTE SHIFT REPORT GIVE BACK AND CARE ENDORSED TO AURY REYES
--- NOTE | 2019-08-07 20:08 | NUR ---
OPENING ASSUMED CARE OF PATIENT ALERT AND ORIENTED X3. PUPILS EQUAL AND REACTIVE. MOVES ALL EXTREMITIES. PERIODS OF CONFUSION. RESPIRATIONS EVEN AND UNLABORED. SR ON RN INTENSIVE CARE UNIT. JJ CATHETER PATENT AND DRAINING YELLOW URINE TO GRAVITY. LOOSE BM AT THIS TIME. FULL BED BATH AND LINEN CHANGE DONE, TOLERATED WELL. VSS. SAFETY PRECAUTIONS IN PLACE. SKIN INTACT. BED IN LOWEST LOCKED POSITION. PT ORIENTED TO CALL LIGHT, EDUCATED TO CALL FOR ASSISTANCE BEFORE GETTING OUT OF BED, VERBALIZED UNDERSTANDING. IN FULL VIEW OF NURSES STATION. WILL CONTINUE TO MONITOR.
--- NOTE | 2019-08-07 20:52 | NUR ---
REPORT GIVEN TO TELE NURSE MARY PT TO GO TO ROOM 219A
--- NOTE | 2019-08-07 21:34 | NUR ---
TRANSFERRED PATIENT TO ROOM 219A VIA WHEEL CHAIR ON TELE MONITOR AND OXYMIZER WITH O2 TANK. VSS. CARE ENDORSED TO MARY REYES.
[2019-08-07] MEDS: ACETAMINOPHEN 500 MG TAB PO PRN (23:04)
--- NOTE | 2019-08-07 23:23 | NUR ---
PT RESTING ON HIS SIDE WITH CALL LIGHT ON AND SITTER IN ROOM. DENIES PAIN. VSS.
[2019-08-08] MEDS: ALBUTEROL SULF 2.5 MG/0.5ML(0.5%) NEB SOLN NEB SCH ×4 (00:45→19:06)
[2019-08-08] MEDS: IPRATROPIUM BROM 0.5 MG/2.5ML INH SOL NEB SCH ×4 (00:45→19:06)
--- NOTE | 2019-08-08 00:53 | NUR ---
RT NOTE PT ASKED NOT TO BE WOKEN FOR THIS TX IF SLEEPING. PT SLEEPING. NO SIGNS OF RESP DISTRESS NOTED BY RT. SITTER AT BEDSIDE.
[2019-08-08 04:49] VITALS: BP 124/85
[2019-08-08 05:27] LABS: Basophils # (auto) 0.1 uL; Basophils % (auto) 0.5 % (0.0-2.0); Eosinophils # (auto) 0.1 uL; Eosinophils % (auto) 0.8 % (0.0-7.0); Hematocrit 38.5 % (41.0-53.0); Hemoglobin 13.2 g/dL (13.5-17.5); Lymphocytes % (auto) 17.5 % (10.0-50.0); Mean Corpuscular Hgb Conc. 34.4 g/dL (32.0-36.0); Mean Corpuscular Volume 92.9 fL (80.0-100.0); Monocytes # (auto) 0.5 uL; Monocytes % (auto) 4.1 % (0.0-12.0); Neutrophils # (auto) 8.7 uL; Neutrophils % (auto) 77.1 % (37.0-80.0); Platelet Count (auto) 173 10^3/uL (140-450); Red Blood Cells 4.14 10^6/uL (4.5-5.90); Red Cell Distribution Width 13.8 % (11.8-14.3); White Blood Cell 11.2 10^3/uL (4.4-10.8)
[2019-08-08 05:59] LABS: BUN/Creatinine Ratio 29.9; Calcium 8.6 mg/dL (8.5-10.1); Potassium 3.1 mmol/L (3.5-5.1)
[2019-08-08] MEDS: ACCU-CHEK COMFORT CURVE STRIP VI SCH ×5 (06:09→23:30)
[2019-08-08] MEDS: InsuLIN REG 1unit/0.01ml Soln (100units/ml) SC SCH ×5 (06:09→23:30)
--- NOTE | 2019-08-08 06:26 | NUR ---
JJ REMOVED PER ORDER. URINAL AT BEDSIDE.
--- NOTE | 2019-08-08 07:30 | NUR ---
Opening Shift Note Assuming care of patient at this time. Patient is resting in bed with eyes closed. No distress noted. Patient shows no signs or symptoms of distress or shortness of breath. Bed is locked and lowered with side rails up x2. Will instruct patient on the plan of care for today once patient is awake and alert. Sitter at bedside for safety. Call light within reach. Will continue to round hourly and as needed.
[2019-08-08 09:00] VITALS: BP 106/66
[2019-08-08] MEDS ORDERED: POTASSIUM EFFERVESENT TAB 25 MEQ PO ONE (10:00)
[2019-08-08] MEDS: cefTRIAXone 1GM/50ML D5W 50 ML IV SCH (10:05)
[2019-08-08] MEDS: ENOXAPARIN SOD 30 MG/0.3 ML SYRINGE SC SCH (10:06)
[2019-08-08] MEDS: FAMOTIDINE (10MG/ML) 2ML VL IV SCH (10:06)
--- NOTE | 2019-08-08 10:15 | NUR ---
Physical Therapy Patient ambulating the meza with physical therapy at this time.
[2019-08-08 13:00] VITALS: BP 134/68
--- NOTE | 2019-08-08 14:30 | NUR ---
Page to Dr. Sharpe Page to Dr. Sharpe at this time. Patient's daughter is requesting a shower.
--- NOTE | 2019-08-08 14:31 | NUR ---
Call from PBX Call from PBX at this time. Dr. Sharpe is not able to be paged at this time. Page went into Luis E Brownlee NP instead. Awaiting callback.
[2019-08-08] MEDS: ACETAMINOPHEN 500 MG TAB PO PRN (15:23)
[2019-08-08 17:00] VITALS: BP 128/83
--- NOTE | 2019-08-08 18:10 | NUR ---
Daughter at bedside Daughter at bedside at this time. Patient is requesting to have hair washed. Daughter to assist patient.
--- NOTE | 2019-08-08 19:18 | NUR ---
Closing Shift Note Patient resting in bed. No distress noted. Daughter at bedside. Report given. Will endorse care to the maintenance technician 3rd shift RN.
--- NOTE | 2019-08-08 19:35 | NUR ---
Opening Shift Note Assumed care of patient, awake and alert, oriented x3. No S/S of distress/SOB or pain, cooperative to care at this time. Daughter and sitter at bedside. Instructed on POC and to call for assist PRN, patient verbalized understanding, call light within reach, sitter maintained, will continue to monitor for changes Q1hr and PRN.
[2019-08-08 20:07] VITALS: BP 128/83
[2019-08-08 22:00] VITALS: BP 123/71
--- NOTE | 2019-08-08 22:15 | NUR ---
Patient complained of knee pain from arthritis. Per patient, Tylenol is not doing anything. Will page hospitalist
--- NOTE | 2019-08-08 22:45 | NUR ---
Hospitalist Vlad called back, new order received and read back. Will carry out order
[2019-08-08] MEDS: HYDROcodone-ACET 5/325MG TAB PO PRN (23:07)
[2019-08-09] MEDS: IPRATROPIUM BROM 0.5 MG/2.5ML INH SOL NEB SCH ×5 (00:25→23:56)
[2019-08-09] MEDS: ALBUTEROL SULF 2.5 MG/0.5ML(0.5%) NEB SOLN NEB SCH ×5 (00:25→23:56)
[2019-08-09 05:00] VITALS: BP 123/71
--- NOTE | 2019-08-09 06:30 | NUR ---
Patient ambulated to the restroom, when he was done he lost control of himself and almost fell but daughter was able to catch him. Assisted patient to his bed, sitter at bedside, will continue to monitor
[2019-08-09] MEDS: ACCU-CHEK COMFORT CURVE STRIP VI SCH ×4 (06:39→23:55)
[2019-08-09] MEDS: InsuLIN REG 1unit/0.01ml Soln (100units/ml) SC SCH ×4 (06:40→23:55)
[2019-08-09 09:00] VITALS: BP 122/59
--- NOTE | 2019-08-09 09:50 | NUR ---
AMBULATION PHYSICAL THERA[Y ASSISTED PATIENT WITH AMBULATION USING FWW, PT TOLERATED ACTIVITY, NO C/O CP, SOB OR ANY OTHER DISCOMFORT, CONT CARE
[2019-08-09] MEDS ORDERED: ENOXAPARIN SOD 40 MG/0.4 ML SYRINGE SC SCH (10:00)
[2019-08-09] MEDS: FAMOTIDINE (10MG/ML) 2ML VL IV SCH (10:21)
[2019-08-09] MEDS: cefTRIAXone 1GM/50ML D5W 50 ML IV SCH (10:21)
--- NOTE | 2019-08-09 11:02 | NUR ---
Nutrition Follow-up Notes Wt.: 94.7 kg Pt's sleeping with no family by bedside. per records pt with THANH. pt with no distress noted currently on CCHO 60 gm soft diet with adequate PO of 75% x 3 per RN doc Est. Needs BW 94 [id number] kcal (23-25 kcal/kgBW), 75-94 gms pro (0.8-1.0 gms/kgBW r/t elev RFT). Will continue to monitor pertinent labs and reassess nutrient need prn Labs: BUN 23 H, GLU 160 H, Skin: Montana scale 15, mod risk, skin intact per RN doc GI: Pt had 1 BM today per assistant printer floor covering. PES: Impaired swallowing r.t current medical condition aeb pt`s intubated sedated with order of NPO Altered nutrition related lab values r/t current/chronic medical condition aeb hyperglycemia, elev RFT mild hypoalb Will continue to monitor PO intake, skin status, pertinent labs and weight trend. F/u in 3-5 days. Rec.: 1.) refer to CDE on DC. 2) continue current plan of care
--- NOTE | 2019-08-09 11:05 | NUR ---
AT BEDSIDE DR VILLA AT BEDSIDE, DISCUSSING POC WITH PT, PATIENT AXOX4, CONT CARE
[2019-08-09] MEDS ORDERED: POTASSIUM CHL 20 Meq TABLET PO ONE (11:15)
[2019-08-09] MEDS ORDERED: FUROSEMIDE 20 MG/2 ML VIAL IV ONE (11:15)
--- NOTE | 2019-08-09 12:54 | NUR ---
pulmonology Dr Ivory at bedside, discussing poc with patient and family, [facility] care
[2019-08-09 13:00] VITALS: BP 122/62
[2019-08-09] MEDS ORDERED: THROAT LOZENGES(CEPASTAT) MT PRN (13:00)
--- NOTE | 2019-08-09 13:30 | NUR ---
INCENTIVE SPIROMETRY PATIENT ABLE TO RETURN DEMONSTRATION ON HOW TO USE IS, ABLE TO RISE DEVICE TO 1500, DONE X3, PATIENT INSTRUCTED TO DO IT Q1HR WHILE AWAKE, PT VERBALIZED UNDERSTANDING, CONT CARE
--- NOTE | 2019-08-09 14:29 | NUR ---
Discharge planning per SS consult, patient has orders at daughter's request for a cane, BP and glucose monitors. Referral sent to [facility]. Received a follow up call from Natacha at [facility] advising that the cane will be delivered to bedside some time today, however Medicare does not cover the other items. Placed a call to daughter Claudine and advised that insurance does not cover and that she can purchase them over the counter from the local [employer] and/or any drug store. She verbalized understanding and advised she would. Notified nurse Pratt of update.
--- NOTE | 2019-08-09 15:56 | NUR ---
Assessment and SS consult Pt is a 64 yr old alert and oriented male. consult given for d/c planning/ SNF. Prior to admit, pt lived alone but may be moving in with his daughter after d/c. Pt ambulates with a cane, and functioned independently with ADL's, cooking and cleaning. Pt admitted to the hospital with SOB and was diagnosed with pneumonia. Pt is in the process of getting a walker. Pt stated that he is connected with the [place] for services. Pt receives income. Pt's daughter, Lida, is his POA and can be contacted at [phone]. Pt daughter will transport home upon d/c. Pt plans to d/c with for safety eval, blood pressure and glucose monitor. Addendum: 08/09/19 at 1605 by TC CROWLEY Amended: Links added.
[2019-08-09 17:00] VITALS: BP 137/62
--- NOTE | 2019-08-09 17:00 | NUR ---
OXYMIZER 4L CHANGED TO NASAL CANULA @4L PER DR VALENTIN, PT O2 95%, NO C/O SOB, PT TOLERATING, CONT CARE
--- NOTE | 2019-08-09 19:30 | NUR ---
Opening Shift Note Assumed care of patient, awake and alert. No S/S of distress/SOB or pain. at bedside. Instructed on POC and to call for assist PRN, patient verbalized understanding, call light within reach, will continue to monitor for changes Q1hr and PRN.
--- NOTE | 2019-08-09 20:30 | NUR ---
Patient ambulated to the restroom with cane with standby assist
[2019-08-09 22:00] VITALS: BP 117/67
[2019-08-10 04:51] VITALS: BP 137/70
[2019-08-10 04:56] LABS: Basophils # (auto) 0.1 uL; Basophils % (auto) 0.6 % (0.0-2.0); Eosinophils # (auto) 0.1 uL; Eosinophils % (auto) 1.3 % (0.0-7.0); Hematocrit 39.1 % (41.0-53.0); Hemoglobin 13.5 g/dL (13.5-17.5); Lymphocytes # (auto) 2.3 uL; Lymphocytes % (auto) 25.9 % (10.0-50.0); Mean Corpuscular Hemoglobin 32.1 pg (28.0-32.0); Mean Corpuscular Hgb Conc. 34.5 g/dL (32.0-36.0); Monocytes # (auto) 0.4 uL; Monocytes % (auto) 4.8 % (0.0-12.0); Neutrophils # (auto) 6.1 uL; Neutrophils % (auto) 67.4 % (37.0-80.0); Nucleated Red Blood Cells % 0.1 %; Platelet Count (auto) 272 10^3/uL (140-450); Red Cell Distribution Width 13.4 % (11.8-14.3)
[2019-08-10 05:14] LABS: BUN/Creatinine Ratio 24.7; Calcium 8.5 mg/dL (8.5-10.1); Potassium 3.1 mmol/L (3.5-5.1)
[2019-08-10] MEDS: IPRATROPIUM BROM 0.5 MG/2.5ML INH SOL NEB SCH ×3 (05:38→18:45)
[2019-08-10] MEDS: ALBUTEROL SULF 2.5 MG/0.5ML(0.5%) NEB SOLN NEB SCH ×3 (05:38→18:45)
[2019-08-10] MEDS: InsuLIN REG 1unit/0.01ml Soln (100units/ml) SC SCH ×4 (06:00→23:17)
[2019-08-10] MEDS: ACCU-CHEK COMFORT CURVE STRIP VI SCH ×4 (06:06→23:18)
--- NOTE | 2019-08-10 07:05 | NUR ---
Opening shift note Assumed care of patient from night warehouse selector nurse. Patient is alert and oriented x4, sitting up in bed, no signs of distress noted. Patient updated on the plan of care and verbalizes understanding. Bed in lowest position, side rails up x2 and call light in reach.
[2019-08-10 09:00] VITALS: BP 131/75
[2019-08-10] MEDS: FAMOTIDINE 20 MG TAB PO SCH (09:34)
[2019-08-10] MEDS: LEVOFLOXACIN 500 MG TAB PO SCH (09:34)
--- NOTE | 2019-08-10 09:55 | NUR ---
at bedside Dr. De Los Santos at bedside. New orders received. Will carry out.
[2019-08-10] MEDS ORDERED: FUROSEMIDE 40 MG/4 ML VIAL IV ONE (10:00)
[2019-08-10] MEDS ORDERED: POTASSIUM CHL 20 Meq TABLET PO ONE (10:00)
--- NOTE | 2019-08-10 12:10 | NUR ---
WOUND CARE NOTE: Wound care in to see patient for skin integrity monitoring. Patient has been extubated and now in MS/telemetry unit. Patient is resting in bed in Rm. 202. Patient is awake, alert and oriented. He's in no stated pain at this time. Patient is ambulatory with cane and with stand by assist. His Montana score is 21. No open wound, no pressure injury noted. Patient tolerated well. No further wound care monitoring needed at this time. RECOMMENDATIONS: Continue with skin/ wound preventative plan of care, new wound consult in case of active wound/pressure injury, Montana score of 12 and below.
--- NOTE | 2019-08-10 12:40 | NUR ---
Family at bedside.
[2019-08-10 13:00] VITALS: BP 108/65
--- NOTE | 2019-08-10 15:34 | NUR ---
D/C Planning Per SS consult for SNF placement. Spoke to Pt regarding doctor orders. Pt decline any assistance for service d/c planning that includes SNF and home health. [facility] and will be staying with his daughter. Informed AMY Gaston.
[2019-08-10 17:00] VITALS: BP 117/72
--- NOTE | 2019-08-10 19:15 | NUR ---
assumed care, pt. awake, relative at bedside, no c/o pain, no sob.
[2019-08-10] MEDS: HYDROcodone-ACET 5/325MG TAB PO PRN (20:58)
[2019-08-10 21:56] VITALS: BP 120/67
[2019-08-11] MEDS: IPRATROPIUM BROM 0.5 MG/2.5ML INH SOL NEB SCH ×3 (00:55→12:15)
[2019-08-11] MEDS: ALBUTEROL SULF 2.5 MG/0.5ML(0.5%) NEB SOLN NEB SCH ×3 (00:55→12:15)
[2019-08-11 05:00] VITALS: BP 115/68
[2019-08-11] MEDS: ACCU-CHEK COMFORT CURVE STRIP VI SCH (05:35)
[2019-08-11] MEDS: InsuLIN REG 1unit/0.01ml Soln (100units/ml) SC SCH (05:35)
[2019-08-11 06:08] LABS: Calcium 8.7 mg/dL (8.5-10.1); Magnesium 1.5 mg/dL (1.6-2.6); Potassium 3.9 mmol/L (3.5-5.1)
[2019-08-11 06:11] LABS: BUN/Creatinine Ratio 23.5
--- NOTE | 2019-08-11 07:09 | NUR ---
Opening Shift note Assumed care of patient from night clerk auditor nurse. Patient alert and oriented x4, no signs of distress noted. Patient updated on plan of care and verbalizes understanding. Bed in lowest position, bed rails upx2, call light in reach. Will continue to monitor.
[2019-08-11 09:00] VITALS: BP 121/73
--- NOTE | 2019-08-11 10:16 | NUR ---
PT PATIENT REFUSED PHYSICAL THERAPY TODAY. PT SEEMED VERY UNMOTIVATED TO GET OUT OF BED, KEPT SAYING HE WANTS TO GO TO [place]. AMY HEARD WAS NOTIFIED. Addendum: 08/11/19 at 1017 by JONATHAN WERNER PTT Amended: Links added.
[2019-08-11] MEDS: FAMOTIDINE 20 MG TAB PO SCH (10:42)
[2019-08-11] MEDS: LEVOFLOXACIN 500 MG TAB PO SCH (10:42)
[2019-08-11 11:30] VITALS: BP 126/78
--- NOTE | 2019-08-11 12:31 | NUR ---
Discharge instructions given as ordered. Encourage to follow up with PCP as instructed. All questions and concerns addressed. Patient verbalized understanding. Medication reconciliation form completed and copy given to patient. IV removed with catheter intact, pressure dressing applied, patient tolerated well. Telemetry unit returned to ICU. Patient refused wheelchair, steady gait and accompanied by family member. No distress noted at time of departure.
== END 2019-08-11 12:31 | disposition home health service (06) | DRG 871 ==
LOC: ER 16:19 → TELE 16:20 → ICU WEST 21:34 → TELE-CENTR 08-07 21:26
PROVIDERS: ADMIT Nurse Practitioner Acute Care; ATTEND Internal Medicine
PROC: 5A1945Z Respiratory Ventilation, 24-96 Consecutive Hours (ICD-10-PCS; principal; 2019-08-02)
PROC: 0BH17EZ Insertion of Endotracheal Airway into Trachea, Via Natural or Artificial Opening (ICD-10-PCS; 2019-08-02)
PROC: 02HV33Z Insertion of Infusion Device into Superior Vena Cava, Percutaneous Approach (ICD-10-PCS; 2019-08-02)
PROC: 04HK33Z Insertion of Infusion Device into Right Femoral Artery, Percutaneous Approach (ICD-10-PCS; 2019-08-04)
PROC: 0B9F8ZX Drainage of Right Lower Lung Lobe, Via Natural or Artificial Opening Endoscopic, Diagnostic (ICD-10-PCS; 2019-08-05)
PROC: 0B9D8ZX Drainage of Right Middle Lung Lobe, Via Natural or Artificial Opening Endoscopic, Diagnostic (ICD-10-PCS; 2019-08-05)
PROC: 0BD38ZX Extraction of Right Main Bronchus, Via Natural or Artificial Opening Endoscopic, Diagnostic (ICD-10-PCS; 2019-08-05)
DX: A41.9 Sepsis, unspecified organism (principal); J96.01 Acute respiratory failure with hypoxia; N17.0 Acute kidney failure with tubular necrosis; R65.21 Severe sepsis with septic shock; J15.6 Pneumonia due to other Gram-negative bacteria; G92 Toxic encephalopathy; I50.33 Acute on chronic diastolic (congestive) heart failure; J96.02 Acute respiratory failure with hypercapnia; E44.1 Mild protein-calorie malnutrition; J44.0 Chronic obstructive pulmonary disease with (acute) lower respiratory infection; Z99.11 Dependence on respirator [ventilator] status; E11.9 Type 2 diabetes mellitus without complications; E78.00 Pure hypercholesterolemia, unspecified; F17.200 Nicotine dependence, unspecified, uncomplicated; E78.5 Hyperlipidemia, unspecified; I11.0 Hypertensive heart disease with heart failure; M19.90 Unspecified osteoarthritis, unspecified site; Z79.84 Long term (current) use of oral hypoglycemic drugs; Z68.27 Body mass index [BMI] 27.0-27.9, adult; Z90.49 Acquired absence of other specified parts of digestive tract
CPT/HCPCS: 31500; 31622; 31624; 36415; 36556; 36600; 51702; 71045; 71250; 74176; 80048; 80053; 80061; 80307; 81001; 82550; 82805; 82962; 83036; 83605; 83735; 83880; 84484; 84702; 85007; 85025; 85027; 85379; 85610; 85730; 87040; 87070; 87077; 87081; 87186; 87205; 87804; 93005; 93306; 93970; 94002; 94003; 94640; 96365; 96367; 97116; 97163; 97530; 99291; C9113; G0378; J0171; J0330; J0696; J1815; J2250; J2543; J2704; J3480; J3490; J7060

== ENCOUNTER 2020-09-17 19:52 | Inpatient (IN) | payer MEDICARE ==
[~2020-09-17] VITALS: Ht 180.3 cm; Wt 83.3 kg
[~2020-09-17 19:52] MED LIST: DICL1GEL50 TD; GABA300C10 PO; GLIP-110 PO; LISI-648 PO; MELO1TAB56 PO; PANT40TA2 PO; PRAV20TA3 GT
[2020-09-17] MEDS ORDERED: DexAMETHasone SOD PHOS 10MG/1ML VIAL INJ IV STA (22:14)
[2020-09-17] MEDS ORDERED: AZITHROMYCIN 500MG/ 250ML 250 ML IV ONE (22:15)
[2020-09-17 23:15] LABS: Basophils # (auto) 0 10 ^3/uL (0-0.2); Basophils % (auto) 0.5 % (0.0-2.0); Eosinophils # (auto) 0 10 ^3/uL (0-0.8); Hematocrit 55.9 % (41.0-53.0); Hemoglobin 19.2 g/dL (13.5-17.5); Lymphocytes # (auto) 1.3 10 ^3/uL (0.4-5.4); Mean Corpuscular Hgb Conc. 34.3 g/dL (32.0-36.0); Mean Corpuscular Volume 93.3 fL (80.0-100.0); Monocytes # (auto) 0.4 10 ^3/uL (0-1.3); Monocytes % (auto) 6.5 % (0.0-12.0); Neutrophils # (auto) 4.4 10 ^3/uL (1.6-8.6); Nucleated Red Blood Cells % 0.3 %; Platelet Count (auto) 164 10^3/uL (140-450); Red Blood Cells 5.99 10^6/uL (4.5-5.90); Red Cell Distribution Width 13.4 % (11.8-14.3); White Blood Cell 6.1 10^3/uL (4.4-10.8)
[2020-09-17 23:18] LABS: INR 1.04 (0.9-1.15); Partial Thromboplastin Time 28.9 sec (23.0-31.2)
[2020-09-17 23:26] LABS: Albumin 3.1 g/dL (3.4-5.0); Anion Gap 11 (5-15); Blood Urea Nitrogen 13 mg/dL (7-18); Calcium 8.9 mg/dL (8.5-10.1); Carbon Dioxide 22 mmol/L (21-32); Chloride 92 mmol/L (98-107); Magnesium 2.3 mg/dL (1.6-2.6); Potassium 3.7 mmol/L (3.5-5.1); Sodium 125 mmol/L (136-145)
[2020-09-17 23:28] LABS: Alanine Aminotransferase 38 U/L (16-61); Alkaline Phosphatase 127 U/L (45-117); Aspartate Aminotransferase 41 U/L (15-37); Bilirubin, Total 0.6 mg/dL (0.2-1.0); GFR African American 88 mL/min; GFR Non-African American 73 mL/min; Lactate Dehydrogenase 286 U/L (87-241)
[2020-09-17 23:47] LABS: Glucose 482 mg/dL (74-106)
[2020-09-17 23:48] LABS: CRP High Sensitivity 16.6 mg/dL (< 0.3)
[2020-09-17 23:49] LABS: Lactic Acid w/Reflex 3.1 mmol/L (0.4-2.0)
[2020-09-18] MEDS ORDERED: ONDANSETRON HCL 4 MG/2 ML VIAL IV PRN (00:15)
[2020-09-18] MEDS ORDERED: DEXTROSE (50%) 50ML SYRG IV PRN (00:15)
[2020-09-18] MEDS ORDERED: TEMAZEPAM 15 MG CAP PO PRN (00:15)
[2020-09-18] MEDS ORDERED: SODIUM CHLORIDE 0.9% 1,000 ML IV ONE (00:15)
[2020-09-18] MEDS ORDERED: SODIUM CHLORIDE 0.9% 500 ML IV ONE (00:15)
[2020-09-18] MEDS ORDERED: NITROGLYCERIN 0.4 MG SL TAB SL PRN (00:15)
[2020-09-18] MEDS ORDERED: MORPHINE SULF INJ 2 MG/ML SYRINGE 1ML IV PRN (00:15)
[2020-09-18] MEDS ORDERED: ACETAMINOPHEN 325 MG TAB PO PRN (00:15)
[2020-09-18] MEDS ORDERED: InsuLIN REG 1unit/0.01ml Soln (100units/ml) IV ONE (00:30)
[2020-09-18] MEDS: ACCU-CHEK COMFORT CURVE STRIP VI SCH ×3 (03:12→17:16)
[2020-09-18] MEDS: InsuLIN REG 1unit/0.01ml Soln (100units/ml) SC SCH ×3 (03:18→17:17)
[2020-09-18] MEDS: SODIUM CHLORIDE 0.9% 1,000 ML IV SCH ×2 (03:30→17:09)
[2020-09-18 03:42] LABS: Urine Bacteria NONE SEEN /hpf (None Seen); Urine Blood Negative /uL (Negative); Urine Specific Gravity 1.035 (1.001-1.035); Urine WBC <1 /hpf (0 - 3)
[2020-09-18] MEDS: LISINOPRIL 10 MG TAB PO SCH (09:00)
[2020-09-18] MEDS: PANTOPRAZOLE 40 MG TAB PO SCH (09:00)
[2020-09-18] MEDS: GABAPENTIN 100 MG CAP PO SCH (09:00)
[2020-09-18] MEDS: levoFLOXacin 500MG 100 ML IV SCH (09:07)
[2020-09-18] MEDS: IPRATROPIUM BROM 0.5 MG/2.5ML INH SOL NEB SCH ×3 (09:39→18:00)
[2020-09-18] MEDS: ALBUTEROL SULF 2.5 MG/0.5ML(0.5%) NEB SOLN NEB SCH ×3 (09:40→18:00)
[2020-09-18] MEDS ORDERED: ENOXAPARIN SOD 40 MG/0.4 ML SYRINGE SC SCH (10:00)
[2020-09-18] MEDS ORDERED: ASPI-498 PO (15:06)
[2020-09-18] MEDS: PRAVASTATIN SODIUM 20 MG TAB PO SCH (23:21)
[2020-09-18] MEDS: INSULIN LANTUS (GLARGINE) 1 /0.01ml (100units/ml) SC SCH (23:37)
[2020-09-19] MEDS: ACCU-CHEK COMFORT CURVE STRIP VI SCH ×5 (00:45→23:12)
[2020-09-19] MEDS: InsuLIN REG 1unit/0.01ml Soln (100units/ml) SC SCH ×5 (00:45→23:12)
[2020-09-19 06:27] LABS: Basophils # (auto) 0 10 ^3/uL (0-0.2); Basophils % (auto) 0.3 % (0.0-2.0); Eosinophils # (auto) 0 10 ^3/uL (0-0.8); Hematocrit 40.7 % (41.0-53.0); Hemoglobin 13.9 g/dL (13.5-17.5); Lymphocytes # (auto) 1.5 10 ^3/uL (0.4-5.4); Lymphocytes % (auto) 19.2 % (10.0-50.0); Mean Corpuscular Hemoglobin 31.7 pg (28.0-32.0); Mean Corpuscular Hgb Conc. 34.2 g/dL (32.0-36.0); Mean Corpuscular Volume 92.9 fL (80.0-100.0); Monocytes # (auto) 0.3 10 ^3/uL (0-1.3); Neutrophils # (auto) 5.8 10 ^3/uL (1.6-8.6); Neutrophils % (auto) 76.5 % (37.0-80.0); Nucleated Red Blood Cells % 0.3 %; Platelet Count (auto) 158 10^3/uL (140-450); Red Blood Cells 4.38 10^6/uL (4.5-5.90); Red Cell Distribution Width 13.3 % (11.8-14.3); White Blood Cell 7.6 10^3/uL (4.4-10.8)
[2020-09-19 06:59] LABS: Calcium 8.1 mg/dL (8.5-10.1); Potassium 3.1 mmol/L (3.5-5.1)
[2020-09-19 07:05] LABS: BUN/Creatinine Ratio 16.7; Bilirubin, Total 0.5 mg/dL (0.2-1.0); Total Protein 5.9 g/dL (6.4-8.2)
[2020-09-19] MEDS: ALBUTEROL SULF 2.5 MG/0.5ML(0.5%) NEB SOLN NEB SCH ×3 (07:15→12:00)
[2020-09-19] MEDS: IPRATROPIUM BROM 0.5 MG/2.5ML INH SOL NEB SCH ×4 (07:15→20:38)
--- NOTE | 2020-09-19 07:15 | NUR ---
Respiratory note: PT SEEN AT THIS TIME. NO RESP DISTRESS NOTED. PT WAS ASLEEP HR 104, RR 20, SPO2 94% ON 2L N/C. PATIENT REFUSED TX AT THIS TIME. HE WANTED TO
[2020-09-19] MEDS: INSULIN LANTUS (GLARGINE) 1 /0.01ml (100units/ml) SC SCH ×2 (07:44→21:34)
[2020-09-19] MEDS ORDERED: POTASSIUM CHL 20 Meq TABLET PO ONE (09:00)
--- NOTE | 2020-09-19 09:25 | NUR ---
Patient came to the unit from ER with bed at 0900, I got hold of BMX RIDER Berenice to get report at 0926, per Berenice, patient already got in house covid 19 collected. patient Aox4, no s/s of acute distress, patient is on 3L of NC, c/o productive cough. oriented patient to the unit, call light within reach, bed in low position, encouraged patient to call for assistance when getting out of the bed. will continue patient care.
[2020-09-19] MEDS: BUDESONIDE (INHALATION) 0.5 MG/2 ML NEB NEB SCH ×2 (10:00→20:38)
[2020-09-19 11:15] VITALS: BP 111/65
[2020-09-19] MEDS: levoFLOXacin 500MG 100 ML IV SCH (11:19)
[2020-09-19] MEDS: GABAPENTIN 100 MG CAP PO SCH (11:19)
[2020-09-19] MEDS: ASCORBIC ACID 500 MG TAB PO SCH ×2 (11:19→21:34)
[2020-09-19] MEDS: ZINC SULFATE 220mg CAP or TAB PO SCH (11:20)
[2020-09-19] MEDS: LISINOPRIL 10 MG TAB PO SCH (11:20)
[2020-09-19] MEDS: CHOLECALCIFEROL (VITD3) 2,000 UNIT CAP PO SCH (11:21)
[2020-09-19] MEDS: ENOXAPARIN SOD 100 MG/1 ML SYRINGE SC SCH (11:21)
[2020-09-19] MEDS: PANTOPRAZOLE 40 MG TAB PO SCH (11:22)
--- NOTE | 2020-09-19 12:46 | NUR ---
Nutrition Assessment/consult Notes please see attached link for complete assessment Est energy needs ABW [id number] kcal (23-25 kcal/kg ABW) Est protein needs 88-105 g (1-1.2g/kg ABW r/t severe hypoalb) Will monitor and reassess prn. Addendum: 09/19/20 at [address] Amended: Links added.
--- NOTE | 2020-09-19 15:00 | NUR ---
collected admission history from patient. patient did not remember when he got his pneumonia vaccine. potassium was 3.1, replacement given.
--- NOTE | 2020-09-19 15:12 | NUR ---
Patient had $[id number] echevarria, secretory Kassandra verified the money. called patient's daughter, Thomas Melgar. at 1500 she came to black pickler the money. Kassandra gave the echevarria to the registry nurse to take down to patient's daughter Thomas.
[2020-09-19 16:00] VITALS: BP 106/70
[2020-09-19] MEDS ORDERED: POTASSIUM CHL 10 Meq TABLET PO ONE (17:00)
--- NOTE | 2020-09-19 19:36 | NUR ---
Opening Shift Note Assumed care of patient, awake and alert laying in the high fowlers position with no S/S of distress/SOB or pain. Patient on 3L nasal cannula oxygen saturation 93%. Bed locked in the lowest position, mynor light within reach, side rails up X2. Instructed on POC and to call for assist PRN, will continue to monitor for changes Q1hr and PRN.
[2020-09-19 20:00] VITALS: BP 108/52
[2020-09-19] MEDS: PRAVASTATIN SODIUM 20 MG TAB PO SCH (21:33)
[2020-09-19 22:00] VITALS: BP 117/61
--- NOTE | 2020-09-19 22:07 | NUR ---
ROUNDS: PATIENT ASLEEP IN THE LOW FOWLERS POSITION. NO SIGNS OF DISTRESS/ SOB AT THIS TIME.
--- NOTE | 2020-09-19 22:22 | NUR ---
TEMPERATURE 100.2, COOLING MEASURES INITIATED
[2020-09-20 05:00] VITALS: BP 115/64
[2020-09-20] MEDS: ACCU-CHEK COMFORT CURVE STRIP VI SCH ×4 (05:59→23:54)
[2020-09-20] MEDS: InsuLIN REG 1unit/0.01ml Soln (100units/ml) SC SCH ×4 (05:59→23:54)
[2020-09-20] MEDS: IPRATROPIUM BROM 0.5 MG/2.5ML INH SOL NEB SCH (06:00)
[2020-09-20] MEDS: ALBUTEROL SULF 2.5 MG/0.5ML(0.5%) NEB SOLN NEB SCH (06:00)
[2020-09-20] MEDS: INSULIN LANTUS (GLARGINE) 1 /0.01ml (100units/ml) SC SCH ×2 (07:00→21:04)
--- NOTE | 2020-09-20 07:02 | NUR ---
CARE ENDORSED TO DAY SHIFT RN. PATIENT LAYING ON HIS LEFT SIDE CURRENTLY ON 3L NASAL CANNULA. OXYGEN SATURATION 96% WITH NO SIGNS OF DISTRESS/ SOB AT THIS TIME.
--- NOTE | 2020-09-20 07:30 | NUR ---
Opening Shift Note Assumed care of patient, awake and alert. No S/S of distress/SOB or pain. Oxygen at 4 lpm via nasal cannula. Bed is low, locked with 2x side rails up. Call light is within reach. Discussed POC with patient. All questions answered. No distress noted upon exiting room.
[2020-09-20 08:18] VITALS: BP 91/44
[2020-09-20] MEDS: BUDESONIDE (INHALATION) 0.5 MG/2 ML NEB NEB SCH (08:47)
[2020-09-20] MEDS: LISINOPRIL 10 MG TAB PO SCH (10:00)
[2020-09-20] MEDS: ENOXAPARIN SOD 100 MG/1 ML SYRINGE SC SCH (10:17)
[2020-09-20] MEDS: levoFLOXacin 500MG 100 ML IV SCH (10:17)
[2020-09-20] MEDS: CHOLECALCIFEROL (VITD3) 2,000 UNIT CAP PO SCH (10:18)
[2020-09-20] MEDS: PANTOPRAZOLE 40 MG TAB PO SCH (10:18)
[2020-09-20] MEDS: ASCORBIC ACID 500 MG TAB PO SCH ×2 (10:18→21:05)
[2020-09-20] MEDS: ZINC SULFATE 220mg CAP or TAB PO SCH (10:18)
[2020-09-20] MEDS: GABAPENTIN 100 MG CAP PO SCH (10:18)
[2020-09-20 12:30] VITALS: BP 99/53
--- NOTE | 2020-09-20 14:24 | NUR ---
Assessment Patient is a 65 year old male, patient was unable to speak with SW, SW called daughter Claudine. Per Claudine, prior to admission to [facility], patient is alert and oriented, patient cognitive abilities are intact. Per Claudine, patient could do all ADL's and ambulate independently. Per Claudine, patient is retire, receiving social security as income and lives alone. Per Claudine, patient will return home post discharge. Per Claudine, patient is a diabetic. Per Claudine, she will provide transportation post discharge, she is her dad support system. Per Claudine, she is requesting Advance Directives forms for her dad. Discharge planning: Patient will return home post discharge, patient will follow up care with his PCP post discharge. Patient has all diabetic supplies to resume home care post discharge. GRACIELA will provide Advance Directive forms prior to discharge. There are no other discharge needs to address at the moment. Addendum: 09/20/20 at 1429 by DOINISIO LIMA Amended: Links added.
[2020-09-20 17:00] VITALS: BP 119/66
--- NOTE | 2020-09-20 19:00 | NUR ---
Opening Shift Note Assumed care of patient, awake and alert laying in the high fowlers position with no S/S of distress/SOB or pain. Currently on 2L nasal cannula oxygen saturation 97%. Bed locked in the lowest position, side rails up X2, call light within reach. Instructed on POC and to call for assist PRN, will continue to monitor for changes Q1hr and PRN.
--- NOTE | 2020-09-20 19:57 | NUR ---
ROUNDS PATIENT LAYING ON HIS LEFT SIDE WITH NO SIGNS OF DISTRESS ON ROOM AIR. CHEST BILATERAL RISE & FALL, OXYGEN SATURATION 84% ON ROOM AIR, PATIENT STATES "I TOOK THE OXYGEN OFF BECAUSE I WENT TO THE RESTROOM" OXYGEN SATURATION 97% ONCE NASAL CANNULA 2L IS PLACED.
[2020-09-20] MEDS: PRAVASTATIN SODIUM 20 MG TAB PO SCH (21:05)
[2020-09-20 22:00] VITALS: BP 102/60
--- NOTE | 2020-09-20 22:47 | NUR ---
ROUNDS PATIENT PAYING IN THE LOW FOWLERS POSITION WITH EYES CLOSED AROUSABLE BY NAME. CURRENTLY ON 2L N/C WITH NO SIGNS OF DISTRESS/ SOB AT THIS TIME
[2020-09-21] MEDS: IPRATROPIUM BROM 0.5 MG/2.5ML INH SOL NEB SCH ×3 (00:13→14:00)
[2020-09-21] MEDS: ALBUTEROL SULF 2.5 MG/0.5ML(0.5%) NEB SOLN NEB SCH ×3 (00:13→14:00)
[2020-09-21] MEDS: BUDESONIDE (INHALATION) 0.5 MG/2 ML NEB NEB SCH ×2 (00:13→10:00)
[2020-09-21 04:29] VITALS: BP 102/60
--- NOTE | 2020-09-21 05:10 | NUR ---
ROUNDS PATIENT LAYING ON HIS LEFT SIDE WITH EYES CLOSED AND AROUSABLE BY NAME. 2L NASAL CANNULA IN PLACE WITH NO SIGNS OF DISTRESS/ SOB
[2020-09-21] MEDS: InsuLIN REG 1unit/0.01ml Soln (100units/ml) SC SCH ×4 (05:33→23:59)
[2020-09-21] MEDS: ACCU-CHEK COMFORT CURVE STRIP VI SCH ×4 (05:37→23:59)
[2020-09-21 06:16] LABS: Potassium 3.3 mmol/L (3.5-5.1)
[2020-09-21 06:31] LABS: BUN/Creatinine Ratio 14.3; Calcium 8.2 mg/dL (8.5-10.1); Magnesium 1.8 mg/dL (1.6-2.6); Phosphorus 2.1 mg/dL (2.5-4.90)
[2020-09-21] MEDS: INSULIN LANTUS (GLARGINE) 1 /0.01ml (100units/ml) SC SCH ×2 (06:53→21:46)
--- NOTE | 2020-09-21 07:00 | NUR ---
CLOSING NOTE: CARE ENDORSED TO DAY SHIFT RN. PATIENT LAYING ON HIS RIGHT SIDE WITH 2L NASAL CANNULA IN PLACE. NO SIGNS OF DISTRESS/ SOB AT THIS TIME. BED LOCKED IN THE LOWEST POSITION, SIDE RAILS UP x2, CALL LIGHT WITHIN REACH.
--- NOTE | 2020-09-21 07:30 | NUR ---
Opening Shift Note Assumed care of patient, awake and alert. No S/S of distress/SOB or pain. Oxygen at 2 lpm via nasal cannula. Discussed POC with patient. All questions answered. Bed is low, locked with 2x side rails up. Call light is within reach. No distress noted upon exiting room.
[2020-09-21 09:00] VITALS: BP 95/55
[2020-09-21] MEDS: LISINOPRIL 10 MG TAB PO SCH (10:00)
[2020-09-21] MEDS: ENOXAPARIN SOD 100 MG/1 ML SYRINGE SC SCH (10:45)
[2020-09-21] MEDS: levoFLOXacin 500MG 100 ML IV SCH (10:45)
[2020-09-21] MEDS: ZINC SULFATE 220mg CAP or TAB PO SCH (10:46)
[2020-09-21] MEDS: ASCORBIC ACID 500 MG TAB PO SCH ×2 (10:48→21:45)
[2020-09-21] MEDS: GABAPENTIN 100 MG CAP PO SCH (10:49)
[2020-09-21] MEDS: PANTOPRAZOLE 40 MG TAB PO SCH (10:49)
[2020-09-21] MEDS: CHOLECALCIFEROL (VITD3) 2,000 UNIT CAP PO SCH (10:49)
[2020-09-21 13:00] VITALS: BP 125/70
--- NOTE | 2020-09-21 15:30 | NUR ---
at bedside Dr. Gee at bedside discussing POC with patient.
[2020-09-21] MEDS ORDERED: POTASSIUM CHL 20 Meq TABLET PO ONE (16:15)
[2020-09-21] MEDS ORDERED: POTASSIUM PHOSPHATE 26.4 MEQ in SODIUM CHL 0.9% 100 ML IV ONE (16:45)
--- NOTE | 2020-09-21 19:35 | NUR ---
Opening Shift Note Assumed care of patient, awake and alert. No S/S of distress/SOB or pain. Safety measures in place bed in lowest position, side rails x2 up, and call light within reach. Patient on 2L O2 via NC. Instructed on POC and to call for assist PRN, will continue to monitor for changes Q1hr and PRN.
[2020-09-21] MEDS: MAGNESIUM OXIDE 400 MG TAB PO SCH (21:44)
[2020-09-21] MEDS: DOXYCYCLINE 100 MG TAB/CAP PO SCH (21:45)
[2020-09-21] MEDS: PRAVASTATIN SODIUM 20 MG TAB PO SCH (21:45)
[2020-09-21 22:00] VITALS: BP 112/65
[2020-09-22 05:00] VITALS: BP 112/70
[2020-09-22] MEDS: InsuLIN REG 1unit/0.01ml Soln (100units/ml) SC SCH ×3 (06:00→16:55)
[2020-09-22] MEDS: ACCU-CHEK COMFORT CURVE STRIP VI SCH ×3 (06:09→16:52)
[2020-09-22] MEDS: ALBUTEROL SULF 2.5 MG/0.5ML(0.5%) NEB SOLN NEB SCH ×3 (06:30→14:25)
[2020-09-22] MEDS: IPRATROPIUM BROM 0.5 MG/2.5ML INH SOL NEB SCH ×3 (06:30→14:25)
[2020-09-22] MEDS: BUDESONIDE (INHALATION) 0.5 MG/2 ML NEB NEB SCH (06:30)
[2020-09-22] MEDS: INSULIN LANTUS (GLARGINE) 1 /0.01ml (100units/ml) SC SCH (06:54)
[2020-09-22 08:43] LABS: BUN/Creatinine Ratio 9.4; Calcium 8.8 mg/dL (8.5-10.1); Potassium 3.5 mmol/L (3.5-5.1)
[2020-09-22 09:00] VITALS: BP 101/64
[2020-09-22] MEDS: GABAPENTIN 100 MG CAP PO SCH (10:24)
[2020-09-22] MEDS: PANTOPRAZOLE 40 MG TAB PO SCH (10:25)
[2020-09-22] MEDS: ASCORBIC ACID 500 MG TAB PO SCH (10:25)
[2020-09-22] MEDS: LISINOPRIL 10 MG TAB PO SCH (10:25)
[2020-09-22] MEDS: ZINC SULFATE 220mg CAP or TAB PO SCH (10:25)
[2020-09-22] MEDS: ENOXAPARIN SOD 100 MG/1 ML SYRINGE SC SCH (10:25)
[2020-09-22] MEDS: DOXYCYCLINE 100 MG TAB/CAP PO SCH (10:25)
[2020-09-22] MEDS: MAGNESIUM OXIDE 400 MG TAB PO SCH (10:26)
[2020-09-22] MEDS: CHOLECALCIFEROL (VITD3) 2,000 UNIT CAP PO SCH (10:26)
[2020-09-22 13:00] VITALS: BP 102/59
--- NOTE | 2020-09-22 14:08 | NUR ---
D/C Planning Per Social service consult for home oxygen at 2 l/min. Faxed clinical information to [facility]. Per Marilin with [facility] portable oxygen will be deliver to the front lobby between 15:00-15:30 and concentrate oxygen to patient home. Informed AMY Peace. Regarding social service consult for home health medication management and home insulin teaching. MD order has been faxed to [facility] as requested by MD. Per Mary Anne with [facility] patient has been accepted and service to start within 24-48hrs upon D/C Planning.
--- NOTE | 2020-09-22 14:16 | NUR ---
Discussed with RN, pt already has oxygen being delivered to home. Room air ABG for home O2 qualification not done at this time.
[2020-09-22 14:33] VITALS: BP 101/64
--- NOTE | 2020-09-22 15:45 | NUR ---
Nutrition Followup Notes Pt wt is 83.3 kg Pt is positive for COVID in isolation. Pt is with a CCHO 60g diet, appetite is good aeb ave 81% x4 PO intake per RN doc. Est energy needs ABW [id number] kcal (23-25 kcal/kg ABW) Est protein needs 88-105 g (1-1.2g/kg ABW r/t severe hypoalb) Will monitor and reassess prn. LABS: GLUC 120 H, ALB 2.0 L GI: Pt had 1 BM on 09/20 per RN doc BS: 21 low risk. Refer to wound assessment report for further details PES: Altered nutrition related lab valeus r.t current chronic medical condition aeb elev A1C severe hypoalb Decreased nutrient needs r/t adiposity aeb pt`s high BMI of 30.5 kgm2 Comments Will continue to monitor PO status, skin status, pertinent labs and weight trends. Will f/u in 2-3 days 1) refer to CDE oN DC 2) consider prostat 1 packet bid 3) continue current plan fo care
--- NOTE | 2020-09-22 17:35 | NUR ---
Paged Dr. Gee regarding [facility] has [facility], [facility] not [facility] the cost of the medications and patient does not want to pay out of the pocket. Informed patient that he needs to [facility] at [place]. However[facility] Awaiting for MD to call back.
--- NOTE | 2020-09-22 17:41 | NUR ---
Paged SS -Mila regarding oxygen has not been delivered. Awaiting to call back.
--- NOTE | 2020-09-22 17:48 | NUR ---
[facility], instructed patient to fill [facility] meds tomorrow, MD aware.
--- NOTE | 2020-09-22 17:50 | NUR ---
Instructed patient to fill meds at [place] and have them call [facility] to get scripts. Patient verbalized understanding.
--- NOTE | 2020-09-22 18:30 | NUR ---
Patient forgot a wallet, Berenice ALMEIDA called patient's daughter. Per daughter will pick it up tomorrow.
--- NOTE | 2020-09-22 18:45 | NUR ---
Discharge instructions given as ordered. Encourage to follow up with PMD (Follow up with Dr. Martinez in 1-2 weeks [phone] [address] [place] Follow up with [facility]) as instructed. All questions and concerns addressed. Patient verbalized understanding. Medication reconciliation form completed and copy given to patient. IV removed with catheter intact, pressure dressing applied. Telemetry unit returned to ICU. Patient taken to vehicle via wheelchair with all personal belongings, accompanied by staff and family member. No distress noted at time of departure.
== END 2020-09-22 18:48 | disposition home health service (06) | DRG 177 ==
LOC: ER 19:55 → OVERFLOW 09-18 00:26 → TELE-WESTW 09-19 08:57
PROVIDERS: ADMIT Nurse Practitioner; ATTEND Internal Medicine
DX: U07.1 COVID-19 (principal); J12.89 Other viral pneumonia; J96.21 Acute and chronic respiratory failure with hypoxia; J44.0 Chronic obstructive pulmonary disease with (acute) lower respiratory infection; I10 Essential (primary) hypertension; E87.6 Hypokalemia; E11.65 Type 2 diabetes mellitus with hyperglycemia; E66.9 Obesity, unspecified; E78.5 Hyperlipidemia, unspecified; E11.40 Type 2 diabetes mellitus with diabetic neuropathy, unspecified; Z68.25 Body mass index [BMI] 25.0-25.9, adult; Z80.0 Family history of malignant neoplasm of digestive organs; Z83.3 Family history of diabetes mellitus; Z82.49 Family history of ischemic heart disease and other diseases of the circulatory system; Z91.19 Patient's noncompliance with other medical treatment and regimen
CPT/HCPCS: 36415; 36600; 71045; 80048; 80053; 81001; 82306; 82728; 82805; 82962; 83036; 83605; 83615; 83735; 84100; 84443; 84484; 85025; 85379; 85610; 85730; 86141; 87040; 87426; 87804; 93005; 94640; 96365; G0378; J1100; J1815; J1956; J2405